=== PATIENT | female | born 1990 | race Caucasian/White ===

== ENCOUNTER 2017-10-19 06:31 | Inpatient (IN) | payer MEDICAID, OTHER ==
[~2017-10-19] VITALS: Ht 154.9 cm; Wt 50.4 kg
[2017-10-19] MEDS ORDERED: ARIP5TAB8 PO (06:48)
[2017-10-19] MEDS ORDERED: CLON1 PO (06:48)
[2017-10-19] MEDS ORDERED: SERT50TA12 PO (06:48)
[2017-10-19 07:57] LABS: BASOPHILS # (AUTO) 0.12 K/uL (0.00-0.20); BASOPHILS % (AUTO) 1.1 % (0.0-2.0); EOSINOPHILS # (AUTO) 0.02 K/uL (0.00-0.70); HEMATOCRIT 37.6 % (36-46); HEMOGLOBIN 12.8 g/dL (12.0-16.0); LYMPHOCYTES # (AUTO) 2.4 K/uL (1.0-4.8); LYMPHOCYTES % (AUTO) 20.9 % (22.0-44.0); MEAN CORPUSCULAR HEMOGLOBIN 31.6 pg (26.0-34.0); MEAN CORPUSCULAR HGB CONC 34.1 G/dL (31.0-37.0); MEAN CORPUSCULAR VOLUME 93 fL (80-100); MONOCYTES # (AUTO) 0.8 K/uL (0.1-1.0); MONOCYTES % (AUTO) 6.9 % (2.0-9.0); NEUTROPHILS # (AUTO) 8.1 K/uL (1.8-7.7); NEUTROPHILS % (AUTO) 70.9 % (40.0-70.0); PLATELET COUNT (AUTO) 321 K/uL (150-450); RED BLOOD CELL COUNT(AUTO) 4.06 MIL/uL (4.00-5.20); RED CELL DISTRIBUTION WIDTH 13.3 % (11.5-14.5)
[2017-10-19 08:21] LABS: ALANINE AMINOTRANSFERASE 20 U/L (12-78); ALBUMIN 3.8 g/dL (3.4-5.0); ALKALINE PHOSPHATASE 92 U/L (46-116); ASPARTATE AMINOTRANSFERASE 15 U/L (15-37); BILIRUBIN,TOTAL 0.2 mg/dL (0.1-1.0); CALCIUM, TOTAL 8.5 mg/dL (8.8-10.5); CARBON DIOXIDE 24 mmol/L (22-29); CREATININE 0.69 mg/dL (0.60-1.30); GLOMERULAR FILTR. RATE CALC > 60 mL/min (>60); GLUCOSE,RANDOM 105 mg/dL (70-110); TOTAL PROTEIN, SERUM 8.2 g/dL (6.4-8.2); UREA NITROGEN, BLOOD 10 mg/dL (7-18)
[2017-10-19 08:23] LABS: ACETAMINOPHEN < 2 mcg/mL (10-30); SALICYLATE 1.1 mg/dL (2.8-20.0)
[2017-10-19 08:43] LABS: ANION GAP 12 mmol/L (8-16); CHLORIDE 107 mmol/L (98-107); POTASSIUM 3.5 mmol/L (3.5-5.1); SODIUM SERUM 143 mmol/L (136-145)
[2017-10-19 11:47] LABS: AMPHET/METH SCREEN,URINE NEGATIVE (NEGATIVE); BARBITURATE SCREEN, URINE NEGATIVE (NEGATIVE); BENZODIAZEPINES SCREEN,URINE NEGATIVE (NEGATIVE); CANNABINOID SCREEN,URINE NEGATIVE (NEGATIVE); COCAINE SCREEN,URINE POSITIVE (NEGATIVE); METHADONE SCREEN, URINE NEGATIVE (NEGATIVE); OPIATE SCREEN,URINE NEGATIVE (NEGATIVE)
[2017-10-19 11:48] LABS: PHENCYCLIDINE SCREEN,URINE NEGATIVE (NEGATIVE)
[2017-10-19] MEDS ORDERED: HALOPERIDOL 5 MG TABLET PO PRN (12:45)
[2017-10-19 13:26] VITALS: BP 98/52
[2017-10-19] MEDS: LORazepam 2 MG TABLET PO PRN ×2 (14:47→20:12)
[2017-10-19 15:01] LABS: CHOL/HDL RATIO 2.1 (3.9-5.7)
[2017-10-19 19:08] VITALS: BP 136/74
[2017-10-19] MEDS ORDERED: INFLUENZA VIRUS VACCINE QVS 2017-18 (3YR+)/PF 60 MCG/0.5 ML SYRINGE IM ONE (19:30)
[2017-10-19] MEDS ORDERED: IBUPROFEN 600 MG TABLET PO PRN (19:45)
[2017-10-19] MEDS ORDERED: ACETAMINOPHEN 325 MG TABLET PO PRN ×2 (19:45→22:00)
[2017-10-19 20:12] VITALS: BP 122/81
[2017-10-19] MEDS: ARIPiprazole 15 MG TABLET PO SCH (20:12)
[2017-10-19] MEDS: ZOLPIDEM TARTRATE 10 MG TABLET PO PRN (20:12)
[2017-10-19] MEDS: SERTRALINE HCL 50 MG TABLET PO SCH (20:12)
[2017-10-19 21:00] VITALS: BP 126/82
[2017-10-19 22:00] VITALS: BP 110/62
[2017-10-19] MEDS ORDERED: IBUPROFEN 400 MG TABLET PO PRN (22:00)
[2017-10-19 23:03] VITALS: BP 124/73
[2017-10-20 08:21] LABS: BASOPHILS % (AUTO) 0.7 % (0.0-2.0); EOSINOPHILS % (AUTO) 1.7 % (1.0-6.0); HEMATOCRIT 38.4 % (36-46); HEMOGLOBIN 13.2 g/dL (12.0-16.0); LYMPHOCYTES # (AUTO) 2.8 K/uL (1.0-4.8); LYMPHOCYTES % (AUTO) 27.3 % (22.0-44.0); MEAN CORPUSCULAR HEMOGLOBIN 31.9 pg (26.0-34.0); MEAN CORPUSCULAR HGB CONC 34.4 G/dL (31.0-37.0); MEAN CORPUSCULAR VOLUME 93 fL (80-100); MONOCYTES # (AUTO) 0.7 K/uL (0.1-1.0); MONOCYTES % (AUTO) 7.2 % (2.0-9.0); NEUTROPHILS # (AUTO) 6.5 K/uL (1.8-7.7); NEUTROPHILS % (AUTO) 63.1 % (40.0-70.0); PLATELET COUNT (AUTO) 320 K/uL (150-450); RED BLOOD CELL COUNT(AUTO) 4.14 MIL/uL (4.00-5.20); RED CELL DISTRIBUTION WIDTH 13.6 % (11.5-14.5)
[2017-10-20 08:46] LABS: HEMOGLOBIN A1C 4.7 % (4.5-6.2)
[2017-10-20 08:49] VITALS: BP 120/79
[2017-10-20 09:24] LABS: THYROID STIMULATING HORMONE 0.56 uIU/mL (0.36-3.74)
[2017-10-20 09:43] LABS: CHOL/HDL RATIO 1.9 (3.9-5.7)
[2017-10-20] MEDS: LORazepam 2 MG TABLET PO PRN ×2 (09:48→16:24)
[2017-10-20 13:13] VITALS: BP 96/60
[2017-10-20 15:11] VITALS: BP 108/70
[2017-10-20 19:00] VITALS: BP 125/69
[2017-10-20] MEDS: SERTRALINE HCL 50 MG TABLET PO SCH (20:23)
[2017-10-20] MEDS: ARIPiprazole 15 MG TABLET PO SCH (20:23)
[2017-10-20] MEDS: ZOLPIDEM TARTRATE 10 MG TABLET PO PRN (20:24)
[2017-10-21] MEDS: LORazepam 2 MG TABLET PO PRN ×2 (06:57→16:06)
[2017-10-21 07:00] VITALS: BP 127/72
[2017-10-21 09:09] VITALS: BP 121/68
[2017-10-21 16:05] VITALS: BP 137/67
[2017-10-21] MEDS: SERTRALINE HCL 50 MG TABLET PO SCH (20:28)
[2017-10-21] MEDS: ARIPiprazole 15 MG TABLET PO SCH (20:28)
[2017-10-21] MEDS: ZOLPIDEM TARTRATE 10 MG TABLET PO PRN (21:14)
[2017-10-22 00:06] VITALS: BP 111/60
[2017-10-22] MEDS: LORazepam 2 MG TABLET PO PRN ×2 (00:08→10:07)
[2017-10-22] MEDS ORDERED: ARIP5TAB8 PO (09:00)
[2017-10-22] MEDS ORDERED: SERT50TA12 PO (09:01)
[2017-10-22 09:03] VITALS: BP 104/53
== END 2017-10-22 11:00 | disposition home or self-care (01) | DRG 753 ==
LOC: EMS 06:33 → AHU 12:26 → B3A 18:12
DX: F31.4 Bipolar disorder, current episode depressed, severe, without psychotic features (principal); R45.851 Suicidal ideations; F14.10 Cocaine abuse, uncomplicated; D72.829 Elevated white blood cell count, unspecified; F10.10 Alcohol abuse, uncomplicated; Z79.899 Other long term (current) drug therapy; Z91.5 Personal history of self-harm; Z71.41 Alcohol abuse counseling and surveillance of alcoholic; Z71.51 Drug abuse counseling and surveillance of drug abuser
CPT/HCPCS: 83036; 84443; 93005; 99285; G0480; G0481